=== PATIENT | female | born 1950 | race Caucasian/White ===

== ENCOUNTER 2019-12-28 13:06 | Outpatient (CLI) | payer MEDICARE, OTHER, SELFPAY ==
--- NOTE | 2019-12-28 13:24 | XR_ITS ---
WS: [id number] SCREENING DEXA SCAN [employer] CLINICAL INFORMATION: ASYMTOMATIC POSTMENOPAUSAL STATE COMPARISON: None. FINDINGS: The L1-L4 bone mineral density measures 0.922 g/cm2. This corresponds to a T score score of -2.1 and Z score of -1.0. Left femoral neck bone mineral density measures 0.786 g/cm2. This corresponds to a T score of -1.8 an d Z score of -0.8. Right femoral neck bone mineral density measures 0.755 g/cm2. This corresponds to a T score -2.0of an d Z score of -1.0. Mean femoral neck bone mineral density measures 0.771 g/cm2. This corresponds to a T score of -1.9 an d Z score of -0.9. XR/XR DEXA axial skeleton* [id number] IMPRESSION: Osteopenia Patient's FRAX calculated 10 year probability for major osteoporotic fracture i s 21.6 % and osteoporotic hip fracture is 4.8%.
== END 2019-12-28 13:07 | disposition home or self-care (01) ==
LOC: RADWPI 13:12
PROVIDERS: Family Provider Family Medicine; PCP Nurse Practitioner; Visit Provider Nurse Practitioner
DX: Z78.0 Asymptomatic menopausal state (principal); M85.89 Other specified disorders of bone density and structure, multiple sites
CPT/HCPCS: 77080

== ENCOUNTER 2023-08-30 11:13 | Outpatient (RCR) | payer MEDICARE, OTHER, SELFPAY | END 2023-09-23 23:59 | disposition home or self-care (01) | LOC: SPT 11:13 | PROVIDERS: Visit Provider Electrodiagnostic Medicine | DX: R42 Dizziness and giddiness (principal) | CPT/HCPCS: 95992; 97161 ==